=== PATIENT | male | born 1995 | race Caucasian/White ===

== ENCOUNTER 2019-11-19 03:27 | Outpatient (CLI) | payer OTHER | END 2019-11-19 03:28 | disposition critical access hospital (66) | LOC: EMS 03:27 | PROVIDERS: ATTEND Surgery | DX: R10.11 Right upper quadrant pain (principal); M54.9 Dorsalgia, unspecified | CPT/HCPCS: A0425; A0429 ==

== ENCOUNTER 2019-11-19 03:49 | Emergency (ER) | payer OTHER ==
--- NOTE | 2019-11-19 03:49 | ED Physician Documentation ---
PD HPI ABD PAIN - Stated complaint Stated Complaint: ABD PAIN - History obtained from History obtained from: Patient - History of Present Illness Timing - onset: Enter time (00:30), Today Timing - details: Abrupt onset Pain level max: 7 Pain level now: 4 Quality: Pain Location: RUQ Radiation: Lower back, Right flank Worsened by: Position, Palpation Associated symptoms: Nausea. No: Fever, Vomiting, Diarrhea, Constipation Similar symptoms before: Has not had sx before Recently seen: Not recently seen Review of Systems Constitutional: denies: Fever, Chills, Sweats Cardiac: reports: Reviewed and negative Respiratory: reports: Reviewed and negative GI: reports: Abdominal Pain, Nausea. denies: Abdominal Swelling, Vomiting, Constipation, Diarrhea : denies: Dysuria, Frequency, Hematuria Skin: denies: Rash PD PAST MEDICAL HISTORY - Past Medical History Past Medical History: No - Past Surgical History Past Surgical History: No - Present Medications Home Medications: Ambulatory Orders Medication Instructions Recorded Confirmed No Known Home Medications 11/19/19 11/19/19 - Allergies Allergies/Adverse Reactions: Allergies Allergy/AdvReac Type Severity Reaction Status Date / Time No Known Drug Allergies Allergy Verified 11/19/19 04:10 - Living Situation Living Arrangement: reports: At home PD ED PE NORMAL - Vitals Vital signs reviewed: Yes - General General: Alert and oriented X 3, No acute distress, Well developed/nourished - HEENT HEENT: Moist mucous membranes - Neck Neck: Supple, no meningeal sign - Cardiac Cardiac: RRR, No murmur - Respiratory Respiratory: No respiratory distress, Clear bilaterally - Abdomen Abdomen: Soft, Non distended, Other (mild TTP epigastrium and RUQ without rebound or guarding) - Back Back: No CVA TTP - Derm Derm: Normal color, Warm and dry, No rash Results - Vitals Vitals: Oxygen O2 Source Room air - Labs Labs: Laboratory Tests 11/19/19 11/19/19 11/19/19 03:05 03:52 04:05 WBC 9.6 RBC 4.79 Hgb 15.0 Hct 42.2 MCV 88.1 MCH 31.3 H MCHC 35.5 RDW 11.6 L Plt Count 221 MPV 10.3 Neut # (Auto) 7.0 H Lymph # (Auto) 1.6 [place] # (Auto) 0.9 Eos # (Auto) 0.1 Baso # (Auto) 0.0 Absolute Nucleated RBC 0.00 Nucleated RBC % 0.0 Sodium 138 Potassium 3.5 Chloride 99 L Carbon Dioxide 27 Anion Gap 12.0 BUN 22 H Creatinine 0.8 Estimated GFR (MDRD) 120 Glucose 130 H Calcium 10.4 H Total Bilirubin 1.2 H AST 156 H ALT 129 H Alkaline Phosphatase 79 Total Protein 7.5 Albumin 4.7 Globulin 2.8 Albumin/Globulin Ratio 1.7 Lipase 31 Urine Color YELLOW Urine Clarity CLEAR Urine pH 7.0 Ur Specific [place] 1.020 Urine Protein NEGATIVE Urine Glucose (UA) NEGATIVE Urine Ketones NEGATIVE Urine Occult Blood NEGATIVE Urine Nitrite NEGATIVE Urine Bilirubin NEGATIVE Urine Urobilinogen 0.2 (NORMAL) Ur Leukocyte Esterase NEGATIVE Ur Microscopic Review NOT INDICATED Urine Culture Comments NOT INDICATED - Rads (name of study) RUQ US Radiology: Prelim report reviewed, See rad report PD MEDICAL DECISION MAKING - ED course Complexity details: reviewed results, re-evaluated patient, considered differential, d/w patient Departure - Departure Disposition: 01 Home, Self Care Clinical Impression: Abdominal pain Condition: Good Instructions: ED Abdominal Pain Unkn Cause Male Follow-Up: BETH Hdez [Provider Group] Comments: As we discussed, you had mild (abnormal) elevations in your liver tests (blood tests). These are not alarming findings, but need to be reevaluated by your doctor. Discharge Date/Time: 11/19/19 07:16
[2019-11-19 04:27] LABS: BILIRUBIN,URINE NEGATIVE (NEGATIVE); CLARITY,URINE CLEAR (CLEAR); GLUCOSE, URINE (UA) NEGATIVE (NEGATIVE); KETONES,URINE (UA) NEGATIVE (NEGATIVE); LEUKOCYTE ESTERASE, URINE NEGATIVE (NEGATIVE); NITRITE,URINE NEGATIVE (NEGATIVE); OCCULT BLOOD,URINE NEGATIVE (NEGATIVE); PROTEIN,URINE NEGATIVE (NEGATIVE); UROBILINOGEN,URINE 0.2 (NORMAL) E.U./dL (NORMAL)
[2019-11-19 04:27] LABS: BASOPHILS % (AUTO) 0.2 %; EOSINOPHILS # (AUTO) 0.1 10^3/uL (0.0-0.7); EOSINOPHILS % (AUTO) 0.8 %; LYMPHOCYTES # (AUTO) 1.6 10^3/uL (1.5-3.5); LYMPHOCYTES % (AUTO) 16.3 %; MEAN CORPUSCULAR HEMOGLOBIN 31.3 pg (27.0-31.0); MEAN CORPUSCULAR HGB CONC 35.5 g/dL (32.0-36.0); MEAN CORPUSCULAR VOLUME 88.1 fL (80.0-94.0); MEAN PLATELET VOLUME 10.3 fL (7.4-11.4); MONOCYTES # (AUTO) 0.9 10^3/uL (0.0-1.0); MONOCYTES % (AUTO) 8.9 %; NEUTROPHILS % (AUTO) 73.4 %; PLT - PLATELET COUNT 221 10^3/uL (130-450); RED BLOOD COUNT 4.79 10^6/uL (4.70-6.10); RED CELL DISTRIBUTION WIDTH 11.6 % (12.0-15.0); WHITE BLOOD COUNT 9.6 x10^3/uL (4.8-10.8)
[2019-11-19 04:37] LABS: ALBUMIN 4.7 g/dL (3.2-5.5); ALBUMIN/GLOBULIN RATIO 1.7 (1.0-2.2); BILIRUBIN,TOTAL 1.2 mg/dL (0.2-1.0); CALCIUM 10.4 mg/dL (8.5-10.3); CREATININE 0.8 mg/dL (0.6-1.2); TOTAL PROTEIN 7.5 g/dL (6.7-8.2)
[2019-11-19 07:10] VITALS: BP 101/62
--- NOTE | 2019-11-19 09:32 | Ultrasound Report ---
PROCEDURE: Abdomen Limited INDICATIONS: abd. pain, RUQ TECHNIQUE: Real-time focused scanning was performed of the abdomen, with image documentation. COMPARISON: The visualized right kidney is unremarkable, without hydronephrosis. FINDINGS: The liver demonstrates normal size. The liver demonstrates increased echogenicity, which i s likely related to minimal fatty infiltration. The increased liver echogenicity limits ultrasound se nsitivity for detection of masses. The visualized pancreas is unremarkable. No gallstones or significant sludge can be seen. The gallbladder wall does not appear thickened. The re is no specific pericholecystic fluid. The sonographic Kenny's sign is negative. No biliary ductal dilatation is seen. The common bile duct measures 4 mm. IMPRESSION: The gallbladder demonstrates a normal sonographic appearance. No biliary dilatation is seen. Note: No significant discrepancy from the preliminary report. Reviewed by: Nicho Johnson MD on 11/19/2019 8:30 AM [facility] Approved by: Nicho Johnson MD on 11/19/2019 8:30 AM [facility] Station ID: [id number]
== END 2019-11-19 07:16 | disposition home or self-care (01) ==
LOC: ED 03:49
DX: R10.11 Right upper quadrant pain (principal); R10.13 Epigastric pain; R94.5 Abnormal results of liver function studies
CPT/HCPCS: 36415; 76705; 80053; 81001; 81003; 83690; 85025; 87086; 99284

== ENCOUNTER 2020-04-14 17:38 | Emergency (ER) | payer OTHER ==
[2020-04-14 17:57] VITALS: BP 134/66
--- NOTE | 2020-04-14 18:20 | ED Physician Documentation ---
History of Present Illness - Stated complaint Stated Complaint: NO TASTE - Chief complaint Chief Complaint: General - History obtained from History obtained from: Patient - History of Present Illness Timing: How many days ago (2) Pain level max: 0 Pain level now: 0 - Additonal information Additional information: 25-year-old male states that he is concerned about possible Covid exposure. He states he has had decreased smell and taste for the past 2 days. Has had mild rhinorrhea and congestion. No fevers. No cough. No vomiting. No abdominal pain. He states that the [facility] told him to come here for a Covid test. Review of Systems Constitutional: denies: Fever, Chills GI: denies: Vomiting, Diarrhea Skin: denies: Rash Musculoskeletal: denies: Neck pain, Back pain Neurologic: denies: Headache PD PAST MEDICAL HISTORY - Past Medical History Past Medical History: No - Past Surgical History Past Surgical History: No - Present Medications Home Medications: Ambulatory Orders Medication Instructions Recorded Confirmed No Known Home Medications 11/19/19 11/19/19 - Allergies Allergies/Adverse Reactions: Allergies Allergy/AdvReac Type Severity Reaction Status Date / Time No Known Drug Allergies Allergy Verified 04/14/20 17:53 - Social History Does the pt smoke?: No Smoking Status: Never smoker Does the pt drink ETOH?: Yes Does the pt have substance abuse?: No - Immunizations Immunizations are current?: Yes PD ED PE NORMAL - Vitals Vital signs reviewed: Yes - General General: Alert and oriented X 3, No acute distress - HEENT HEENT: Ears normal, Moist mucous membranes, Pharynx benign - Neck Neck: Supple, no meningeal sign - Cardiac Cardiac: RRR - Respiratory Respiratory: No respiratory distress, Clear bilaterally - Derm Derm: Warm and dry - Neuro Neuro: Alert and oriented X 3 - Psych Psych: Normal mood, Normal affect Results - Vitals Vitals: Vital Signs - 24 hr 04/14/20 17:53 Temperature 36.5 C Heart Rate 89 Respiratory 16 Rate Blood Pressure 134/66 H O2 Saturation 100 Oxygen O2 Source Room air PD MEDICAL DECISION MAKING - ED course Complexity details: considered differential, d/w patient ED course: Covid test performed. Patient will self quarantine until results are obtained. This document was made in part using voice recognition software. While efforts are made to proofread this document, sound alike and grammatical errors may occur. Departure - Departure Disposition: Home, Self Care Clinical Impression: Loss of taste Condition: Good Instructions: ED Viral Syndrome Follow-Up: your,doctor as needed [Other] Comments: You have a Covid test pending. You need to self quarantine until the result is done and negative. Do not leave your house. Do not get near anybody. The results should be done in 48 to 72 hours. We will call with a positive result, the fastest way to get a negative result for confirmation though is to go to the hospital website at [email or web address], click on the my [employer] tab and sign up for the patient portal. If any friends or family get sick and would like to have a Covid test done, but do not have signs or symptoms that would necessitate being hospitalized, we encourage testing through our coronavirus swabbing station, call [phone] to schedule an appointment. Discharge Date/Time: 04/14/20 18:21
== END 2020-04-14 18:21 | disposition home or self-care (01) ==
LOC: ED 17:38
DX: U07.1 COVID-19 (principal); R43.9 Unspecified disturbances of smell and taste; R09.81 Nasal congestion; J34.89 Other specified disorders of nose and nasal sinuses
CPT/HCPCS: 99282; 99283

== ENCOUNTER 2020-10-04 11:18 | Outpatient (CLI) | payer OTHER ==
[2020-10-04 12:17] VITALS: BP 117/82
--- NOTE | 2020-10-04 12:17 | SLEEP CARE CONSULTATION ---
Information from patient questionnaire entered by Asmita Espinosa. I have reviewed and concur with the information entered by Asmita Espinosa. This document represents the service I personally performed and the decisions made by me, Miguelina Perrin ARNP. History of Present Illness Service Date and Time: 10/04/2020 1118 Reason for Visit: New patient Chief Complaint: reports: Unrefreshed sleep, Snoring, Excessive daytime sleepiness, Frequent awakenings at night. denies: Observed pauses in breathing Date of Onset: 3 years Usual bedtime: 9 pm Time it takes to fall asleep: 2-3 hours after laying down Snores at night: Yes Observed to quit breathing while asleep: No Sleeps alone due to snoring: No Number of times waking at night: 2-3 Reasons for waking at night: reports: Bathroom, Other (unknown reason; has woken up feeling short of breath or congested). denies: Choking, Snoring, Gasping for air Toss, Turn, or Twitch while sleeping: Yes Recalls having dreams: No Usually gets out of bed at: 5:20 am; weekends up at 7 AM Feels refreshed in the morning: No Morning headache: No Sleepy or fatigued during the day: Yes Ever fallen asleep while driving: Yes (drowsy driving, no accidents) Takes day naps: No Dreams during day naps: No Prior sleep studies: No Additional HPI information: I had the pleasure of seeing CYN WILLIAMSON today regarding the possibility of him having a sleep disorder. His current complaints are frequent night awakenings and unrefreshed sleep. He was seen by his PCM and they recommended a sleep study. He takes 2-3 hours to go to sleep. He lays down about 9 PM and gets up between 0520 and 0700. He has some difficulty with concentrating when he is fatigued. He is tired during the day but not necessarily sleepy. He has had several jobs in the that required him to work very long hours with little sleep. 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 He worked in this environment for hours at a times for about 1.5 years. I advised him to talk to his PCM at his next appointment about this concern. He has an uncle who was diagnosed with sleep apnea but is unsure if he was treated because he shortly after this diagnosis was made. - Parasomnia Symptoms Ever been unable to move upon waking from sleep: No Walks in sleep: No Talks in sleep: No Ever acted out dreams in sleep: No Ever felt weak in the knees when startled or emotional: No Bothered by creepy, crawly, restless sensations in legs: No Problems with memory or concentration: Yes (more concentration due to fatigue) Subjective Initial [place] Sleepiness Scale score: 10 (in 2020) Social History The patient's occupation is a Active . Patient is Single and lives in [place]. Have you smoked in the past 12 months: No Alcohol use: No Caffeine use: Yes Caffeine amount and frequency: not much and not often Family History Family history of sleep disordered breathing: Yes Family Hx Sleep Apnea: Other: Sleep apnea - Treated (uncle; unsure if treated due to passing away shortly after dx) Allergies and Home Medications Drug allergies reviewed: Yes (NKDA) Home medication list reviewed: Yes (no daily medications) Review of Systems Weight gain over past 5 years: 25 Cardiovascular: denies: high blood pressure Respiratory: reports: shortness of breath Gastrointestinal: reports: heartburn Neurological: denies: headaches Psychiatric: denies: anxiety, depression, mood disorder Ear/Nose/Throat: reports: nasal congestion, wisdom teeth removed. denies: tonsillectomy Endocrine: reports: sluggishness, unexplained weakness Immunologic: denies: allergies to food or environment Physical Exam Blood Pressure: 117/82 Cuff size: wrist Heart Rate: 71 O2 Saturation: 98 Height: 5 ft 8 in Weight: 185 lb Body Mass Index: 28.1 BMI Classification: Overweight Neck circumference: 16 (inches) Mouth and throat: narrow oropharynx Soft palate: long Hard palate: normal Uvula visualization: 25% Mallampati Class III Tongue: normal in size Tonsils: 1+ Chin and jaw: normal size and position Neck: normal w/o lymphadenopathy or thyromegaly Heart: regular rate and rhythm Lungs: clear bilaterally Impression and Plan 1. Suspected Obstructive Sleep Apnea-Hypopnea Syndrome, as suggested by a histor y of loud and irregular snoring, unrefreshed sleep, cognitive impairment, and excessive daytime sleepiness. Narrow oropharynx and obesity are common predisposing factors for obstructive sleep apnea-hypopnea syndrome. I recommend proceeding to polysomnography to confirm the diagnosis and to assess severity. If the patient has significant sleep disordered breathing, a manual CPAP titration study will also be performed to find the optimal treatment pressure. I informed the patient of what the sleep studies involve and after some discussion, obtained agreement to proceed. The pathophysiology of obstructive sleep apnea-hypopnea syndrome was discussed with the patient and health risks of cardiovascular and cerebrovascular disease if not treated. Risks of drowsy driving discussed in detail and patient advised to avoid long distance driving and to conductor pullman at the first sign of drowsiness. Patient agreed to plan. * Schedule polysomnography +- manual CPAP titration study and return in 1-2 wee ks after the study to discuss result and initiate therapy. * Avoid long distance driving or driving when feeling sleepy. * Avoid sedative and muscle relaxant around bedtime. * Attempt to lose weight. * Review instructions provided by trained office staff on how to prepare for the sleep study. * Return for follow-up after sleep study completed. Counseling Topics: Weight loss health impact Visit Type: In Office Time Spent with Patient (minutes): 32 Provider Statement: I spent 100% of the Face to Face Visit with the patient with greater than 50% spent counseling the patient and coordination of care.
== END 2020-10-04 11:19 | disposition home or self-care (01) ==
LOC: SC 11:18
PROVIDERS: ATTEND Nurse Practitioner Family
DX: R06.83 Snoring (principal); G47.8 Other sleep disorders; R41.89 Other symptoms and signs involving cognitive functions and awareness; G47.10 Hypersomnia, unspecified; E66.3 Overweight; Z68.28 Body mass index [BMI] 28.0-28.9, adult
CPT/HCPCS: 99203; 99212

== ENCOUNTER 2020-10-30 10:24 | Outpatient (CLI) | payer OTHER ==
--- NOTE | 2020-10-30 10:58 | SLEEP CARE CONSULTATION ---
Information from patient questionnaire entered by Asmita Espinosa. I have reviewed and concur with the information entered by Asmita Espinosa. This document represents the service I personally performed and the decisions made by , Miguelina Perrin ARNP. History of Present Illness Service Date and Time: 10/30/2020 1024 Initial [place] Sleepiness Scale score: 10 (in 2020) Current [place] Sleepiness Scale score: 11 Additional HPI information: CYN WILLIAMSON returns for follow up and results of the recently performed polysomnography at [facility]. The patient was informed of the following findings: no significant sleep disordered breathing with an average AHI of 1.4 and a candi oxygen saturation of 92%. I explained the pathophysiology behind obstructive sleep apnea. Patient does not have sleep apnea and was advised how weight gain could increase the risk of developing sleep apnea in the future. Patient has light to loud snoring. Snoring can be reduced by weight loss. Weight loss is best achieved with diet consult. Patient instructed to contact PCP for referral. Snoring can also be treated with an oral appliance from a dentist. Advised to check insurance coverage. In addition, an ENT evaluation can be do to see if other treatment is indicated. Patient does not drink alcohol. Patient was cautioned about risks of drowsy driving until sleepiness symptoms resolve. Sleep Study - Results Type of Sleep Study: Polysomnography ([facility]) Prior sleep studies: No Polysomnography/Home Sleep Study results: Interpretation: In-laboratory Attended Nocturnal Polysomnography. The patient had good sleep efficiency. The sleep architecture was normal. Respiratory monitoring showed no significant sleep disordered breathing (AHI = 1.4) or hypoxia (candi oxygen saturation of 92.0%). The patient slept mostly supine. Snoring was light but occasionally loud in intensity. There was no periodic leg movement of sleep. Cardiac rhythm was normal sinus rhythm. No abnormal behavior (parasomnia) observed during the night. Allergies and Home Medications Home medication list reviewed: Yes (no changes) Review of Systems Review of systems same as previous: Yes (no changes) Physical Exam Heart Rate: 85 O2 Saturation: 99 Height: 5 ft 8 in Weight: 182 lb Body Mass Index: 27.6 BMI Classification: Overweight Impression and Plan 1. Snoring but no significant sleep disordered breathing. Patient advised that often weight loss will reduce snoring as well as apnea risk. An oral appliance can also be used for snoring. This would require a dental consultation. Patient cautioned not to use other online appliances as can cause bite issues. A list of accredited dentists in [facility] and one local dentist who makes oral appliances is available in office. Patient is advised to check if insurance will cover. An ENT consult can also be helpful to determine if any other treatment is an option. 2. Insomnia, unspecified. Patient complains of frequent night awakenings that interfere with him being able to get a good night sleep. He states it takes him 2-3 hours to fall asleep at the onset of the night and then he wakes up at least 3 times during the night and has difficulty re-initiating sleep. He is generally tired during the day. I advised him that further information could help determine what help he may need to get a better night's sleep and will have him follow up after completing a 2 week sleep diary. Insomnia is generally caused by an irregular sleep schedule, spending too much time in bed, napping, caffeine, electronics, lack of a relaxing bedtime ritual and clock watching. Other factors can include anxiety/depression, pain, medications, and obstructive sleep apnea. [facility] How to Sleep Better and Understanding insomnia pamphlets given for patient to review. A sleep diary will be completed for the next 2 weeks to assist implementation of recommendations and for further evaluation of sleep concerns. * Keep a two week sleep diary * Attempt to lose weight * The patient is cautioned about driving until sleepiness is completely resolved. * Return for follow up in 2-4 weeks. Counseling Topics: Weight loss health impact Visit Type: In Office Time Spent with Patient (minutes): 18 Provider Statement: I spent 100% of the Face to Face Visit with the patient with greater than 50% spent counseling the patient and coordination of care.
== END 2020-10-30 10:25 | disposition home or self-care (01) ==
LOC: SC 10:24
PROVIDERS: ATTEND Nurse Practitioner Family
DX: R06.83 Snoring (principal); G47.00 Insomnia, unspecified; E66.3 Overweight; Z68.27 Body mass index [BMI] 27.0-27.9, adult
CPT/HCPCS: 99212

== ENCOUNTER 2020-11-18 13:23 | Outpatient (CLI) | payer OTHER ==
--- NOTE | 2020-12-03 23:02 | SLEEP CARE CONSULTATION ---
Information from patient questionnaire entered by Asmita Espinosa. I have reviewed and concur with the information entered by Asmita Espinosa. This document represents the service I personally performed and the decisions made by me, Ivy Tristan MD, [facility]. History of Present Illness Service Date and Time: 11/18/2020 1323 Reason for follow up: other (2 week with sleep diary) Prior sleep studies: Yes Year and Where: 2020 - [facility] Type of Sleep Study: Polysomnography (negative) HPI additional information: HPI: Mr. Robertson complains of insomnia. He had an in-laboratory polysomnography at [facility] in [place] a month ago that was normal. His sleep efficiency was good, and sleep architecture was normal. There was no sleep disrupting condition. The patient continues to complain of waking up 3 times during the night. His sleep diary shows relatively normal schedule with some discrepancy between week days and weekends. Subjective Initial [place] Sleepiness Scale score: 10 (in 2020) Current [place] Sleepiness Scale score: 10 Allergies and Home Medications Drug allergies reviewed: Yes Home medication list reviewed: Yes Review of Systems Review of systems same as previous: Yes Physical Exam Height: 5 ft 8 in Weight: 185 lb Body Mass Index: 28.1 BMI Classification: Overweight Impression and Plan IMPRESSION: 1. Insomnia, partly due to work schedule and possibly a short sleeperan individual requiring 6 or less hours of sleep a night. The patient is not particularly sleepy during the day with [place] Sleepiness Scale score of 10. The patient continues to be very concerned about waking up 3 times during the night. I explained to him that he did not wake up more often during the sleep study than a normal person would. What happens at home will need further investigation. I recommend further evaluation with an actigraphy which we do not have available here. The test, which he would wear for a month, will objectively record his sleep-wake pattern and how many times he wakes up during the night on the average. PLAN: 1. Maintain a regular wake up time if possible 2. Referral to the sleep clinic at a tertiary care center where actigraphy can be performed to objectively monitor his sleep-wake pattern. 3. Return to our sleep clinic on as needed basis. Visit Type: In Office Time Spent with Patient (minutes): 15 Provider Statement: I spent 100% of the Face to Face Visit with the patient with greater than 50% spent counseling the patient and coordination of care.
== END 2020-11-18 13:24 | disposition home or self-care (01) ==
LOC: SC 13:23
PROVIDERS: ATTEND Internal Medicine Pulmonary Disease
DX: G47.00 Insomnia, unspecified (principal); E66.3 Overweight; Z68.28 Body mass index [BMI] 28.0-28.9, adult
CPT/HCPCS: 99212